=== PATIENT | male | born 1955 | race Caucasian/White ===

== ENCOUNTER 2018-06-09 02:34 | Inpatient (IN) | payer SELFPAY ==
[2018-06-09 03:05] LABS: Arterial Blood Carboxyhemoglob 2.3 % (0-1.5); Blood Gas Oxyhemoglobin 90.3 % (94-97); Blood O2 Saturation 93.4 % (92-98.5)
[2018-06-09] MEDS ORDERED: CEFTRIAXONE/SWI 1gm 1 GM/10 ML SYR ONE (03:14)
[2018-06-09] MEDS ORDERED: ALBUTEROL 2.5 MG/3 ML NEB SOL ONE (03:14)
[2018-06-09] MEDS ORDERED: ACETAMINOPHEN 500 MG TAB ONE (03:14)
[2018-06-09] MEDS ORDERED: IPRATROPIUM BROM 0.5MG/2.5ML ONE (03:14)
[2018-06-09] MEDS ORDERED: NA CHLORIDE 0.9% 1,000 ML ONE (03:14)
[2018-06-09 03:42] LABS: Protime INR 1.15
[2018-06-09 03:43] LABS: Absolute Lymphocytes (CBC) 0.8 K/uL (0.7-4.9); Absolute Monocytes 1.1 K/uL (0.1-1.3); Absolute Neutrophil 9.5 K/uL (1.8-8.0); Basophils % 0.4 % (0-1.3); Eosinophils % 0.1 % (0-4.4); Hematocrit 41.3 % (39.6-49.0); MPV 7.8 fL (7.6-11.3); Monocytes % 9.7 % (3.3-12.3); RBC Red Blood Cell Count 4.56 M/uL (4.33-5.43)
--- NOTE | 2018-06-09 03:53 | ER ---
Nurse's Notes [facility] Name: Pantera Cooper Age: 62 yrs Sex: Male : 1955 Arrival Date: 06/09/2018 Time: 02:39 Bed 5 Private MD: Diagnosis: Sepsis, unspecified organism;Acute respiratory failure Presentation: 06/09 02:39 Presenting complaint: EMS states: they were toned out for report of pt having bb difficulty breathing pt was 87% on room air on their arrival they placed him on a non rebreather at 15 LPM pt's sats went to 96%. Transition of care: patient was not received from another setting of care. Onset of symptoms was June 04, 2018. Risk Assessment: Do you want to hurt yourself or someone else? Patient reports no desire to harm self or others. Initial Sepsis Screen: Does the patient meet any 2 criteria? RR > 20 per min. Temp <36.0*C (96.8*F)) or > 38.3*C (100.9*F). HR > 90 bpm. Yes Does the patient have a suspected source of infection? Yes: Productive cough/pneumonia. Care prior to arrival: Oxygen administered. via a non-rebreather mask. 02:39 Method Of Arrival: EMS: [facility] bb 02:39 Acuity: NISH 2 bb Triage Assessment: 05:04 General: Appears in no apparent distress. uncomfortable. Respiratory: Onset: The ao symptoms/episode began/occurred at an unknown time. the patient has moderate shortness of breath. Respiratory: Airway is patent Respiratory effort is labored, Respiratory pattern is regular, symmetrical. Historical: - Allergies: 02:42 No Known Allergies; bb - Home Meds: 02:42 None [Active]; bb - PMHx: 02:42 None; bb - Immunization history:: Adult Immunizations up to date, Flu vaccine is not up to date. - Social history:: Smoking status: Patient uses tobacco products, smokes one-half pack cigarettes per day, Patient/guardian denies using alcohol, street drugs. - Ebola Screening: : No symptoms or risks identified at this time. Screenin:03 Abuse screen: Denies threats or abuse. Denies injuries from another. Nutritional ao screening: No deficits noted. Tuberculosis screening: No symptoms or risk factors identified. Fall Risk None identified. Assessment: 02:40 General: Appears distressed, well groomed, well developed. ao 02:40 General: Appears distressed, well groomed, well developed, Behavior is calm, ao cooperative, appropriate for age. Pain: Denies pain. Neuro: Level of Consciousness is awake, alert, obeys commands, Oriented to person, place, time, situation, Appropriate for age Moves all extremities. Full function Speech is normal, Facial symmetry appears normal. Cardiovascular: Rhythm is regular. Respiratory: Reports shortness of breath at rest Airway is patent Respiratory effort is labored, Respiratory pattern is Breath sounds are diminished bilaterally. GI: Abdomen is obese. : No signs and/or symptoms were reported regarding the genitourinary system. EENT: No signs and/or symptoms were reported regarding the EENT system. Derm: Skin is intact, Skin is pink, warm \T\ dry. normal, Skin temperature is warm. Musculoskeletal: Circulation, motion, and sensation intact. Range of motion: intact in all extremities, Swelling absent. 04:34 Reassessment: pt refused to wear Bipap placed on NC at 4 Lpm O2 sats 91% Dr Andria matute notified. Vital Signs: 02:42 BP 133 / 74; Pulse 125; Resp 22 S; Temp 101.6(O); Pulse Ox 97% on 15% Non-rebreather bb mask; Weight 90.72 kg (R); Height 6 ft. 0 in. (182.88 cm) (R); Pain 0/10; 03:40 BP 112 / 72; Pulse 108; Resp 20; Pulse Ox 94% on BiPAP; ao 04:42 BP 104 / 66; Pulse 100; Resp 20; Pulse Ox 91% on 4 lpm NC; ao 05:33 BP 108 / 68; Pulse 104; Resp 22; Temp 98.5(O); Pulse Ox 100% on 4 lpm NC; ao 02:42 Body Mass Index 27.12 (90.72 kg, 182.88 cm) giovani ED Course: 02:39 Patient arrived in ED. bb 02:40 Arnold Ayers MD is Attending Physician. gs 02:40 Patient has correct armband on for positive identification. equipment monitor phototypesetting on. Pulse ao ox on. NIBP on. 02:40 No provider procedures requiring assistance completed. Inserted saline lock: 20 gauge ao in right forearm, using aseptic technique. Blood collected. 02:42 Triage completed. bb 02:42 Arm band placed on Patient placed in an exam room, on a stretcher, on oxygen, on bb youth nutritional monitor, on pulse oximetry. 02:55 Link Chau RN is Primary Nurse. ao 03:06 Chest Single View XRAY In Process Unspecified. EDMS 03:48 Aldo Mayer MD is Hospitalizing Provider. gs 06:20 Patient admitted, IV remains in place. ao Administered Medications: 03:00 Drug: Tylenol 650 mg Route: PO; ao 06:23 Follow up: Response: No adverse reaction ao 03:15 Drug: NS 0.9% 1000 ml Route: IV; Rate: 1 bolus; Site: right forearm; ao 06:23 Follow up: IV Status: Completed infusion; IV Intake: 1000ml ao 03:15 Drug: Albuterol 2.5 mg Route: Inhalation; ao 06:22 Follow up: Response: No adverse reaction ao 03:15 Drug: AtroVENT Aerosol 0.5 mg Route: Inhalation; ao 06:22 Follow up: Response: No adverse reaction ao 03:30 Drug: Rocephin - (cefTRIAXone) 1 grams Route: IVPB; Infused Over: 30 mins; Site: right ao forearm; 05:00 Follow up: IV Status: Completed infusion; IV Intake: 10ml ao 04:03 Drug: LevaQUIN 750 mg Volume: 150 ml; Route: IVPB; Infused Over: 90 mins; Site: right ao antecubital; 06:21 Follow up: IV Status: Completed infusion; IV Intake: 200ml ao Intake: 05:00 IV: 10ml; Total: 10ml. ao 06:21 IV: 200ml; Total: 210ml. ao 06:23 IV: 1000ml; Total: 1210ml. ao Outcome: 03:52 Decision to Hospitalize by Provider. gs 06:19 Admitted to Med/surg accompanied by tech, room 222, with oxygen, with chart, Report ao called to TALIA Garza 06:19 Condition: stable 06:19 Instructed on the need for admit. 06:24 Patient left the ED. ao Signatures: [facility] ED[facility]aksha Chery RN RN bb Ortiz, Alex, RN RN ao Arnold Ayers MD MD Corrections: (The following items were deleted from the chart) 05:34 05:33 BP 108 / 68; Pulse 104bpm; Resp 22bpm; Pulse Ox 100%; Temp 98.5F Oral; ao ao
--- NOTE | 2018-06-09 03:53 | EDPHYS ---
Physician Documentation [facility] Name: Pantera Cooper Age: 62 yrs Sex: Male : 1955 Arrival Date: 06/09/2018 Time: 02:39 Bed 5 Private MD: ED Physician Arnold Ayers HPI: 06/09 05:27 This 62 yrs old Male presents to ER via EMS with complaints of Breathing gs Difficulty. 05:27 The patient has shortness of breath at rest. Onset: The symptoms/episode began/occurred gs 3 day(s) ago, and became worse and became persistent. Duration: The symptoms are continuous, and are steadily getting worse. The patient's shortness of breath is aggravated by exertion. Associated signs and symptoms: Pertinent positives: non-productive cough, fever. Severity of symptoms: At their worst the symptoms were severe in the emergency department the symptoms are unchanged. The patient has experienced similar episodes in the past, a few times. The patient has not recently seen a physician. Historical: - Allergies: 02:42 No Known Allergies; bb - Home Meds: 02:42 None [Active]; bb - PMHx: 02:42 None; bb - Immunization history:: Adult Immunizations up to date, Flu vaccine is not up to date. - Social history:: Smoking status: Patient uses tobacco products, smokes one-half pack cigarettes per day, Patient/guardian denies using alcohol, street drugs. - Ebola Screening: : No symptoms or risks identified at this time. ROS: 05:27 All other systems are negative. gs Exam: 05:27 Head/Face: Normocephalic, atraumatic. Eyes: Pupils equal round and reactive to light, gs extra-ocular motions intact. Lids and lashes normal. Conjunctiva and sclera are non-icteric and not injected. Cornea within normal limits. Periorbital areas with no swelling, redness, or edema. ENT: Nares patent. No nasal discharge, no septal abnormalities noted. Tympanic membranes are normal and external auditory canals are clear. Oropharynx with no redness, swelling, or masses, exudates, or evidence of obstruction, uvula midline. Mucous membranes moist. Neck: Trachea midline, no thyromegaly or masses palpated, and no cervical lymphadenopathy. Supple, full range of motion without nuchal rigidity, or vertebral point tenderness. No Meningismus. Chest/axilla: Normal chest wall appearance and motion. Nontender with no deformity. No lesions are appreciated. 05:27 Abdomen/GI: Soft, non-tender, with normal bowel sounds. No distension or tympany. No guarding or rebound. No evidence of tenderness throughout. Back: No spinal tenderness. No costovertebral tenderness. Full range of motion. Skin: Warm, dry with normal turgor. Normal color with no rashes, no lesions, and no evidence of cellulitis. MS/ Extremity: Pulses equal, no cyanosis. Neurovascular intact. Full, normal range of motion. Neuro: Awake and alert, GCS 15, oriented to person, place, time, and situation. Cranial nerves II-XII grossly intact. Motor strength 5/5 in all extremities. Sensory grossly intact. Cerebellar exam normal. Normal gait. 05:27 Constitutional: The patient appears alert, awake. 05:27 Constitutional: The patient appears in obvious distress, severely distressed. 05:27 Cardiovascular: Rate: tachycardic, Rhythm: regular, Pulses: no pulse deficits are appreciated. 05:27 ECG was reviewed by the Attending Physician. 05:27 Respiratory: severe repiratory distress is noted, Respirations: tachypnea, Breath sounds: rhonchi, that are severe, are scattered. 05:27 Musculoskeletal/extremity: Circulation is intact in all extremities. Edema, 1+ to the left ankle and right ankle is noted. Vital Signs: 02:42 BP 133 / 74; Pulse 125; Resp 22 S; Temp 101.6(O); Pulse Ox 97% on 15% Non-rebreather bb mask; Weight 90.72 kg (R); Height 6 ft. 0 in. (182.88 cm) (R); Pain 0/10; 03:40 BP 112 / 72; Pulse 108; Resp 20; Pulse Ox 94% on BiPAP; ao 04:42 BP 104 / 66; Pulse 100; Resp 20; Pulse Ox 91% on 4 lpm NC; ao 05:33 BP 108 / 68; Pulse 104; Resp 22; Temp 98.5(O); Pulse Ox 100% on 4 lpm NC; ao 02:42 Body Mass Index 27.12 (90.72 kg, 182.88 cm) bb MDM: 02:47 Patient medically screened. 05:27 Differential diagnosis: CHF exacerbation, Chronic Obstructive Pulmonary Disease gs Myocardial Infarction pneumonia, Sepsis. Data reviewed: vital signs, nurses notes, lab test result(s), EKG, radiologic studies. Response to treatment: the patient's symptoms have mildly improved after treatment, and as a result, I will admit patient. 06/09 02:50 Order name: Basic Metabolic Panel 06/09 02:50 Order name: Blood Culture Adult (2) 06/09 02:50 Order name: CBC with Diff 06/09 02:50 Order name: Ckmb 06/09 02:50 Order name: CPK; Complete Time: 04:53 06/09 02:50 Order name: Lactate; Complete Time: 04:53 06/09 02:50 Order name: LFT's; Complete Time: 04:53 06/09 02:50 Order name: Lipase; Complete Time: 04:53 06/09 02:50 Order name: Procalcitonin; Complete Time: 04:53 06/09 02:50 Order name: Protime (+inr); Complete Time: 04:53 06/09 02:50 Order name: Troponin (emerg Dept Use Only); Complete Time: 04:53 06/09 02:50 Order name: Urine Microscopic Only 06/09 02:50 Order name: ABG; Complete Time: 03:42 06/09 02:51 Order name: Basic Metabolic Panel; Complete Time: 04:53 [facility] [place] 06/09 02:50 Order name: BIPAP 06/09 02:50 Order name: Chest Single View XRAY 06/09 02:50 Order name: Cardiac monitoring; Complete Time: 03:13 06/09 02:50 Order name: EKG - Nurse/Tech; Complete Time: 03:13 06/09 02:50 Order name: IV Saline Lock - Large Bore; Complete Time: 03:28 06/09 02:51 Order name: Blood Culture [facility] [place] 06/09 02:51 Order name: CBC with Automated Diff; Complete Time: 04:53 [facility] 06/09 02:51 Order name: CKMB Creatine Kinase MB; Complete Time: 04:53 [facility] 06/09 03:43 Order name: PROBNP 06/09 04:48 Order name: Influenza Screen (A [facility] 06/09 02:50 Order name: Labs collected and sent; Complete Time: 03:28 06/09 02:50 Order name: O2 Per Protocol; Complete Time: : 06/09 02:50 Order name: O2 Sat Monitoring; Complete Time: 03:14 06/09 02:50 Order name: Urine Dipstick-Ancillary (obtain specimen); Complete Time: : EC:27 Rate is 119 beats/min. Rhythm is regular. [place] interval is normal. QRS interval is gs normal. QT interval is normal. Q waves are Old. Clinical impression: Abnormal EKG without significant change. Interpreted by me. Administered Medications: 03:00 Drug: Tylenol 650 mg Route: PO; ao 06:23 Follow up: Response: No adverse reaction ao 03:15 Drug: NS 0.9% 1000 ml Route: IV; Rate: 1 bolus; Site: right forearm; ao 06:23 Follow up: IV Status: Completed infusion; IV Intake: 1000ml ao 03:15 Drug: Albuterol 2.5 mg Route: Inhalation; ao 06:22 Follow up: Response: No adverse reaction ao 03:15 Drug: AtroVENT Aerosol 0.5 mg Route: Inhalation; ao 06:22 Follow up: Response: No adverse reaction ao 03:30 Drug: Rocephin - (cefTRIAXone) 1 grams Route: IVPB; Infused Over: 30 mins; Site: right ao forearm; 05:00 Follow up: IV Status: Completed infusion; IV Intake: 10ml ao 04:03 Drug: LevaQUIN 750 mg Volume: 150 ml; Route: IVPB; Infused Over: 90 mins; Site: right ao antecubital; 06:21 Follow up: IV Status: Completed infusion; IV Intake: 200ml ao Disposition: 05:27 Critical Care:. gs Disposition: 06/09/18 03:52 Hospitalization ordered by Aldo Mayer for Inpatient Admission. Preliminary diagnosis are Sepsis, unspecified organism, Acute respiratory failure. - Bed requested for Telemetry/MedSurg (Inpatient). - Status is Inpatient Admission. ao - Condition is Stable. - Problem is new. - Symptoms have improved. UTI on Admission? No Critical care time excluding procedures: 05:27 Critical care time: Bedside Care: 10 minutes, Consultation: 10 minutes, Family gs Intervention: 10 minutes. Total time: 30 minutes Signatures: Dispatcher [employer] EDMS Kaushik, TALIA Guadarrama RN, Brenda, RN RN bb Ortiz, Alex, RN RN ao Arnold Ayers MD MD Corrections: (The following items were deleted from the chart) 05:27 03:52 Hospitalization Ordered by Aldo Mayer MD for Inpatient Admission. Preliminary diagnosis is Sepsis, unspecified organism; Acute respiratory failure. Bed requested for Telemetry/MedSurg (Inpatient). Status is Inpatient Admission. Condition is Stable. Problem is new. Symptoms have improved. UTI on Admission? No. gs 06:24 05:27 06/09/2018 03:52 Hospitalization Ordered by Aldo Mayer MD for Inpatient ao Admission. Preliminary diagnosis is Sepsis, unspecified organism; Acute respiratory failure. Bed requested for Telemetry/MedSurg (Inpatient). Status is Inpatient Admission. Condition is Stable. Problem is new. Symptoms have improved. UTI on Admission? No. kl
[2018-06-09 03:54] LABS: ALT/SGPT 22 U/L (12-78); AST/SGOT 24 U/L (15-37); Albumin 3.5 g/dL (3.4-5.0); Alkaline Phosphatase 75 U/L (45-117); BUN Blood Urea Nitrogen 12 mg/dL (7-18); Bicarbonate 25 mmol/L (21-32); Bilirubin Direct 0.2 mg/dL (0-0.2); Bilirubin Total 0.5 mg/dL (0.2-1.0); CKMB Creatine Kinase MB 1.5 ng/mL (0.3-3.6); Creatine Phosphokinase 470 U/L (39-308); Glucose Level 161 mg/dL (74-106); Lipase 105 U/L (73-393); Potassium 3.8 mmol/L (3.5-5.1); Protein, Total 7.4 g/dL (6.4-8.2); Sodium Level 140 mmol/L (136-145); Troponin (Emerg Dept Use Only) < 0.02 ng/mL (0.0-0.045)
[2018-06-09] MEDS ORDERED: Levofloxacin 750mg IV 750 MG/150 ML BAG IV ONE (04:03)
--- NOTE | 2018-06-09 05:33 | P.HP ---
Certification for Inpatient Patient admitted to: Inpatient With expected LOS: >2 Midnights Practitioner: I am a practitioner with admitting privileges, knowledge of patient current condition, hospital course, and medical plan of care. Services: Services provided to patient in accordance with Admission requirements found in Title 42 Section 412.3 of the Code of Federal Regulations Patient History Date of Service: 06/09/18 Reason for admission: acute respiratory failure History of Present Illness: Mr Cooper is a 62 years old male with history of tobacco abuse, not very cooperative telling the history, start about a week ago with body aches, weakness and progressive SOB. He also has productive cough mostly dry. He denied fever, sweating episodes or chills. Today, his symptoms got worse and called 911. When EMS arrived home, found the patient hypoxic 87% on RA, they put him on NR and O2 sat improved to 96%. In ER he was febrile 101.6 F, Lab work shows normal WBC count, normal lactate and procalcitonin. CXR remarkable for bilateral infiltrate consistent with pneumonia. Home medications list reviewed: Yes - Past Medical/Surgical History -: tobacco abuse Past Surgical History: Reviewed- Non-Contributory - Family History Family History: Reviewed- Non-Contributory - Social History Smoking Status: Current every day smoker Counseled patient to stop smoking for: less than 10 minutes Alcohol use: No CD- Drugs: No Place of Residence: Home Review of Systems 10-point ROS is otherwise unremarkable Physical Examination - Physical Exam General: Alert, In no apparent distress HEENT: Atraumatic, PERRLA, Mucous membr. moist/pink, EOMI, Sclerae nonicteric Neck: Supple, 2+ carotid pulse no bruit, No LAD, Without JVD or thyroid abnormality Respiratory: Diminished, Crackles/rales (bilateral chrackles), Expiratory wheezes, Rhonchi/gurgles Cardiovascular: Regular rate/rhythm, Normal S1 S2 Gastrointestinal: Normal bowel sounds, No tenderness Musculoskeletal: No tenderness Integumentary: No rashes Neurological: Normal speech, Normal strength at 5/5 x4 extr, Normal tone, Normal affect Lymphatics: No axilla or inguinal lymphadenopathy - Studies Laboratory Data (last 24 hrs) 06/09/18 03:15: PT 13.5 H, INR 1.15 06/09/18 03:15: WBC 11.5 H, Hgb 14.2, Hct 41.3, Plt Count 219 06/09/18 03:15: Sodium 140, Potassium 3.8, BUN 12, Creatinine 0.95, Glucose 161 H, Total Bilirubin 0.5, AST 24, ALT 22, Alkaline Phosphatase 75, Lipase 105 Assessment and Plan - Problems (Diagnosis) (1) Acute respiratory failure Current Visit: Yes Status: Acute Qualifiers: Respiratory failure complication: hypoxia Qualified Code(s): J96.01 - Acute respiratory failure with hypoxia (2) Tobacco abuse Current Visit: Yes Status: Acute (3) Pneumonia Current Visit: Yes Status: Acute Qualifiers: Pneumonia type: due to unspecified organism Laterality: bilateral Lung location: unspecified part of lung Qualified Code(s): J18.9 - Pneumonia, unspecified organism - Plan Will admit Mr Cooper due to acute respiratory failure. He has bilateral infiltrate on CXR, normal WBC count, fever. Differential diagnosis include flu pneumonia vs bacterial pneumonia (less likely). Will order influenza screening, breathing treatment, continue empiric antibiotic. Consult Regulatory Internship. - Advance Directives Does patient have a Living Will: No Does patient have a Durable POA for Healthcare: No - Code Status/Comfort Care Code Status Assessed: Yes Code Status: Full Code
[2018-06-09] MEDS ORDERED: ACETAMINOPHEN 500 MG TAB PO PRN (07:52)
[2018-06-09] MEDS ORDERED: IPRATROPIUM BROM 0.5MG/2.5ML NEB PRN (07:52)
[2018-06-09] MEDS ORDERED: ALBUTEROL 2.5 MG/3 ML NEB SOL NEB PRN (07:52)
[2018-06-09] MEDS ORDERED: ONDANSETRON 4 MG/2 ML VIAL IV PRN (07:52)
[2018-06-09] MEDS: METHYLPREDNISOLONE 40 MG INJ IV SCH ×3 (08:26→18:00)
[2018-06-09] MEDS ORDERED: ENOXAPARIN 40 MG/0.4 ML SQ SCH (09:00)
--- NOTE | 2018-06-09 09:47 | RAD REPORT ---
EXAM DESCRIPTION: RAD - Chest Single View - 06/09/2018 3:08 am CLINICAL HISTORY: Cough, fever COMPARISON: None. TECHNIQUE: AP portable chest image was obtained 0304 hours . FINDINGS: Fibrotic changes are present in each upper lung field. Patient has prominent interstitial markings in each lower lung field. Baseline for the patient is unknown. There is fullness of each hil um believed to be elevation due to apical scarring. Mass or lymphadenopathy is not excluded. Heart si ze is normal range. No measurable pleural effusion and no pneumothorax. No acute bony abnormality see n. No acute aortic findings suspected. IMPRESSION: Bilateral apical scarring causing elevation of each hilum. Patchy opacification in each lung base. As a baseline study, infiltrate is not excluded. Fullness of each hilum. Mass or lymphadenopathy are not excluded. Follow-up CT chest imaging may be h elpful for further characterization.
--- NOTE | 2018-06-09 10:03 | P.PN ---
Subjective Date of Service: 06/09/18 Primary Care Provider: From [place] Chief Complaint: acute respiratory failure Subjective: Other (Still with cough and congestion.) Physical Examination - Vital Signs Temperature: 98.7 F Blood Pressure: 126/61 Pulse: 89 Respirations: 20 Pulse Ox (%): 94 - Physical Exam General: Alert, In no apparent distress, Oriented x3, Cooperative HEENT: Atraumatic Neck: Supple Respiratory: Expiratory wheezes, Inspiratory wheezes, Other (Poor inspiration and expiration) Cardiovascular: Normal pulses, Regular rate/rhythm Gastrointestinal: Normal bowel sounds, Soft and benign, Non-distended, No tenderness, No masses, No rebound, No guarding Musculoskeletal: No tenderness, No warmth Integumentary: No tenderness/swelling, No erythema, No warmth, No cyanosis Neurological: Normal speech, Normal strength at 5/5 x4 extr, Normal tone, Normal affect - Studies Laboratory Data (last 24 hrs) 06/09/18 03:15: PT 13.5 H, INR 1.15 06/09/18 03:15: WBC 11.5 H, Hgb 14.2, Hct 41.3, Plt Count 219 06/09/18 03:15: Sodium 140, Potassium 3.8, BUN 12, Creatinine 0.95, Glucose 161 H, Total Bilirubin 0.5, AST 24, ALT 22, Alkaline Phosphatase 75, Lipase 105 Microbiology Data (last 24 hrs): 06/09/18 05:20 Nasopharnyx Influenza Type A Antigen Screen - Final 06/09/18 05:20 Nasopharnyx Influenza Type B Antigen Screen - Final Medications List Reviewed: Yes Assessment & Plan Discharge Plan: Home Plan to discharge in: Greater than 2 days Physician Review Additional Text: Impression: Acute on chronic respiratory failure secondary to COPD exacerbation with bilateral pneumonia Tobacco abuse Suspect GERD Plan: Acute on chronic respiratory failure secondary to COPD exacerbation with bilateral pneumonia: Continue IV antibiotic therapy. Patient on COPD medication including IV steroids. Will continue to wean off oxygen to maintain sats above 90%. Will monitor CBC. Will check CT angiogram to further evaluate. Pulmonology consulted for further recommendation. Tobacco abuse: Patient may require nicotine patch. Will monitor closely. Suspect GERD: Will provide medication. Time Spent Managing Pts Care (In Minutes): 55
[2018-06-09 13:59] LABS: Urine Bacteria <20 /HPF (NONE SEEN); Urine Culture Reflex Order NOT NEEDED; Urine RBC <5 /HPF (NONE SEEN)
[2018-06-09] MEDS ORDERED: FUROSEMIDE 20 MG/ 2ML VIAL IV ONE (14:10)
[2018-06-09] MEDS ORDERED: ARFORMOTEROL TARTRATE 15 MCG/2 ML VIAL.NEB NEB SCH (20:00)
[2018-06-09] MEDS ORDERED: FAMOTIDINE 20 MG TAB PO SCH (21:00)
[2018-06-10] MEDS ORDERED: Levofloxacin 750mg IV 750 MG/150 ML BAG IV SCH (06:00)
[2018-06-10] MEDS ORDERED: THIAMINE HCL 100 MG TABLET PO SCH (09:00)
[2018-06-10] MEDS ORDERED: FOLIC ACID 1 MG TABLET PO SCH (09:00)
--- NOTE | 2018-06-10 21:46 | EKG ---
Test Date: 2018-06-09 Test Time: 03:07:29 Drafter Marine: RICARDO MEASUREMENT RESULTS: Intervals: Rate: 119 GA: 136 QRSD: 90 QT: 330 QTc: 464 Nunn: P: 69 GA: 136 QRS: -74 T: 28 INTERPRETIVE STATEMENTS: Sinus tachycardia Possible Left atrial enlargement Left axis deviation Septal infarct, age undetermined Abnormal ECG No previous ECG available for comparison Electronically Signed On 06-10-18 21:45:48 CDT by Gopi Moore
== END 2018-06-09 18:04 | disposition left against medical advice (07) | DRG 193 ==
LOC: ER 02:34 → ERHOLD 05:22 → 2ND 06:03
PROVIDERS: ADMIT Internal Medicine; ATTEND Family Medicine
DX: J18.9 Pneumonia, unspecified organism (principal); J96.21 Acute and chronic respiratory failure with hypoxia; J44.1 Chronic obstructive pulmonary disease with (acute) exacerbation; J44.0 Chronic obstructive pulmonary disease with (acute) lower respiratory infection; F17.210 Nicotine dependence, cigarettes, uncomplicated; K21.9 Gastro-esophageal reflux disease without esophagitis
CPT/HCPCS: 36415; 71045; 80048; 80076; 81015; 82550; 82553; 82805; 83605; 83690; 83880; 84145; 84484; 85025; 85610; 87040; 87804; 93005; 94640; 94660; 99285; J0696; J1650; J1940; J2920; J7030